=== PATIENT | female | born 1990 | race Caucasian/White ===

== ENCOUNTER 2017-10-30 13:11 | Emergency (ER) | payer OTHER ==
[~2017-10-30] VITALS: Ht 154.9 cm; Wt 45.4 kg
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
[2017-10-30 14:05] VITALS: BP 108/65
== END 2017-10-30 14:05 | disposition home or self-care (01) ==
LOC: ER 13:11
DX: S16.1XXA Strain of muscle, fascia and tendon at neck level, initial encounter (principal); S29.012A Strain of muscle and tendon of back wall of thorax, initial encounter; F17.210 Nicotine dependence, cigarettes, uncomplicated; Z88.0 Allergy status to penicillin; V89.2XXA Person injured in unspecified motor-vehicle accident, traffic, initial encounter; Y93.89 Activity, other specified; Y99.8 Other external cause status; Y92.488 Other paved roadways as the place of occurrence of the external cause
CPT/HCPCS: 72040; 72072; 99284

== ENCOUNTER 2018-06-08 02:15 | Emergency (ER) | payer SELFPAY ==
[~2018-06-08] VITALS: Ht 154.9 cm; Wt 43.4 kg
[2018-06-08 02:15] VITALS: BP 112/64
--- NOTE | 2018-06-08 02:36 | PHYS DOC ---
Past History Past Medical History: No Pertinent History Past Surgical History: No Surgical History Smoking: Cigarettes Alcohol Use: None Drug Use: None Adult General Chief Complaint Chief Complaint: SORE THROAT HPI HPI Patient is a 27 year old female who presents to the emergency department for evaluation. She states that 2 weeks ago she was treated at [facility] for an STD, with antibiotics, possibly Flagyl or azithromycin. She states that for the past week, she developed a sore throat, along with some tightness in her throat, and ulcerations on her tongue. She has not had any fevers or chills. She does report pain with swallowing. Her voice is normal. She has not had any significant shortness of breath. She denies any headache, numbness, weakness. Swallowing worsens her pain. There are no alleviating factors to her symptoms otherwise. The patient denies any past history of infectious diseases, such as HIV. Review of Systems Review of Systems Constitutional: Denies fever or chills [] Eyes: Denies change in visual acuity, redness, or eye pain [] HENT: Denies nasal congestion or voice changes. Reports sore throat [] Respiratory: Denies cough or shortness of breath [] GI: Denies abdominal pain, nausea, vomiting, bloody stools or diarrhea [] : Denies dysuria or hematuria [] Musculoskeletal: Denies back pain or joint pain [] Integument: Denies rash or skin lesions [] Neurologic: Denies headache, focal weakness or sensory changes [] Endocrine: Denies polyuria or polydipsia [] Allergies Allergies Allergies Coded Allergies Type Severity Reaction Last Updated Verified Penicillins Allergy Unknown 09/11/15 Yes Physical Exam Physical Exam PHYSICAL EXAM: CONSTITUTIONAL: Well developed, well nourished HEAD: normocephalic, atraumatic EENT: PERRL, EOMI. Conjunctivae normal color, sclerae non-icteric; moist mucous membranes. There are multiple ulcerative lesions on the tongue, both lateral aspects and that the top of the tongue. The oropharynx is mildly erythematous without any exudate. There is no edema. There is no laryngeal/thyroid cartilage tenderness to palpation. There is no stridor. Airway is patent. There is no submandibular lymphadenopathy. NECK: Supple, non-tender; no meningismus. LUNGS: Lungs CTA, breathing even and unlabored. Normal air movement. HEART: Regular rate and rhythm, no murmur CHEST: No deformity; non-tender ABDOMEN: The abdomen is soft, and non-tender, no masses or bruits. EXTREM: Normal ROM; no deformity, no calf tenderness. Normal pulses palpable in all extremities. There is no pedal edema. SKIN: No rash; no diaphoresis NEURO: Alert; normal speech and cognition; CN's grossly intact; strength grossly intact without focal deficit. BACK: No CVA TTP. Current Patient Data Lab Results Rapid strep negative EKG EKG [] Radiology/Procedures Radiology/Procedures [ER physician preliminary neck soft tissue x-ray interpretation: No acute abnormality. The prevertebral soft tissues and epiglottis appear normal.] Course & Med Decision Making Course & Med Decision Making Pertinent Labs and Imaging studies reviewed. (See chart for details) [3:00 AM: I discussed test results with the patient, the uncertain etiology of her stomatitis, the need for ENT follow-up for further evaluation, and return precautions. The patient's airways patent and voice is normal.] Dragon Disclaimer Dragon Disclaimer This electronic medical record was generated, in whole or in part, using a voice recognition dictation system. Departure Departure: Impression: Primary Impression: Stomatitis Disposition: 01 HOME, SELF-CARE Condition: STABLE Referrals: BEAU SALAZAR (PCP) Patient Instructions: Stomatitis Additional Instructions: Swish and swallow Maalox, 10 mL every 4-6 hours as needed for oral discomfort. Follow-up with Dr. Diana Mary, ENT, [phone], or [phone], for further evaluation of your symptoms. Please call to schedule an appointment. JOSE MCRAE MD Jun 08, 2018 02:36
--- NOTE | 2018-06-08 09:05 | RAD ---
INDICATION: Neck pain. TECHNIQUE: 2 view soft tissue neck is submitted for review. Comparison is made to cervical spine radiographs from October 30, 2017. FINDINGS: There is no airway narrowing. Epiglottis does not appear thickened. Prevertebral soft tissues are within normal limits. No radiopaque foreign body is apparent. Reversal of cervical lordosis is similar to prior. IMPRESSION: Negative for airway narrowing. Negative for radiopaque foreign body. Electronically signed by: Lopez Bocanegra MD (06/08/2018 9:02 AM) [facility]
== END 2018-06-08 03:30 | disposition home or self-care (01) ==
LOC: ER 02:15
DX: K12.1 Other forms of stomatitis (principal); F17.210 Nicotine dependence, cigarettes, uncomplicated; Z88.0 Allergy status to penicillin
CPT/HCPCS: 70360; 87070; 87880; 99285